=== PATIENT | female | born 1995 | race Caucasian/White ===

== ENCOUNTER 2017-07-01 21:14 | Emergency (ER) | payer OTHER, MEDICAID, SELFPAY | END 2017-07-01 23:07 | disposition home or self-care (01) | PROVIDERS: Emergency Provider Emergency Medicine; Visit Provider Emergency Medicine | DX: H10.9 Unspecified conjunctivitis (principal); B00.9 Herpesviral infection, unspecified | CPT/HCPCS: 99283 ==

== ENCOUNTER 2017-07-27 07:17 | Emergency (ER) | payer MEDICAID, SELFPAY ==
[2017-07-27 07:24] VITALS: BP 110/73; PULSE 94; RESP 13; TEMP 36.8; O2SAT 98
--- NOTE | 2017-07-27 07:27 | ED_ITS ---
HPI - Eye Problem General Chief complaint: Eye Problems Stated complaint: coughing, thinks she has pink eye left Time Seen by Provider: 07/27/17 07:18 Source: patient Mode of arrival: ambulatory Limitations: no limitations History of Present Illness HPI Narrative: patient is a 22-year-old female here for evaluation of left eye redness and irritation. Patient was seen here approximately 1 week ago for the same symptoms in her right eye. Is currently on Keflex and erythromycin ointment. Patient has been seen here in the emergency department 2 times prior to this for similar symptoms. I have seen her 1 time in the past. She states that there was a ?eyedrop ?that she was given in the past that seemed to take care of her symptoms within 1 day. She states she does not remember the name of this medication. No trauma. Does have blurry vision. Does have a foreign body sensation. Does have itching. She states that her right eye symptoms that she was seen for approximately 1 week ago have resolved. Related Data Home Medications Medication Instructions Recorded Confirmed [id number] acid 1 tab PO DAILY 07/19/17 07/19/17 [ 19] Previous Rx's Medication Instructions Recorded cephalexin [Keflex] 500 mg PO QID #40 cap 07/19/17 ibuprofen 600 mg PO TID-QID PRN #30 tab 07/19/17 olopatadine 1 drop EYE-LEFT BID 7 Days #2.5 ml 07/27/17 Allergies Allergy/AdvReac Type Severity Reaction Status Date / Time No Known Allergies Allergy Uncoded 07/01/17 21:22 Review of Systems Constitutional Denies chills, Denies fever(s), Denies lethargy and Denies weakness Eyes Comments: Left eye redness, left eye itching, left eye foreign body sensation, left eye irritation, left eye drainage, No right eye symptoms ENT Comments: No sore throat although she did have a sore throat 1 week ago No ear symptoms No cough No problem swallowing No sinus congestion Cardiovascular Denies dyspnea and Denies dyspnea on exertion Respiratory Denies cough, Denies dyspnea, Denies dyspnea on exertion and Denies wheezing Integumentary/Breasts Comments: Redness around her left eye otherwise no other skin symptoms Neurologic Denies weakness Hematologic/Lymphatic Denies easy bruising Allergic/Immunologic Denies wheezing [facility] Social History (Reviewed 07/27/17 @ 08:04 by BENJAMIN Pretty Smoking Status: Current some day smoker Exam Const General: cooperative and well developed Nutritional Appearance: well nourished Orientation: alert, awake, oriented x3 and not confused [facility] Head: normal to inspection, normocephalic and atraumatic Ears: external ears normal, TM's normal bilaterally and EAC abnormal Nose: external nose normal and No nasal discharge Face and sinus: sinuses nontender, face symmetric, no sinus tenderness and No dry mucous membranes Mouth: oral mucosae normal and moist mucous membranes Teeth and gingiva: dentition normal Throat: tonsils normal and uvula midline Eyes Pupils: PERRL EOM: EOM intact bilaterally Other: Right eye unremarkable Left eye with scleral injection Does have crusting on the upper and lower eyelids Does have cobblestoning of the lower conjunctiva No foreign body seen Patient does have some redness of the skin surrounding the eye mostly on the lower eyelid extending past the lateral portion of the eye Resp Effort & Inspection: normal respiratory effort, able to speak in complete sentences, no respiratory distress and no use of accessory muscles Auscultation: clear to auscultation bilaterally, no rales, no rhonchi and no wheezes Skin Other: Redness surrounding the left IC I section for details Neuro General: alert, oriented x3, gait normal and no focal motor deficits Cranial Nerves: CN's II-XI intact bilaterally Speech: speech normal Motor: strength 5/5 throughout Sensory Exam: no sensory deficits noted MDM - Eye Problem MDM Narrative Medical decision making narrative: Patient with 4 visits since the beginning of the year for similar symptoms. She has been on Augmentin in the past and is currently on Keflex. Does have some other URI like symptoms. Had review of her past notes I could not find what medication that she was given that she states took away her symptoms however when I did talk to her about other treatments such as decongestants and nasal steroids I also mentioned the medication Patanol. She states that that sounded very familiar in thinks it was the medication she was given in the past. I will not change her antibiotics today. Will not start on new antibiotics today. I suspect the redness around her eye his irritation from her rubbing the eye. No foreign body. She does not wear contacts or glasses. I suspect that her symptoms are allergic in nature given her prior symptoms and the fact that the Patanol took her symptoms almost completely away. We did discuss the importance of her following up with her primary care doctor. She states that ?no one will take me ?when asked if she was going to pursue finding a primary care doctor. Informed her that it would is important since she seems to be having consistent symptoms. We discussed the use of the antihistamines and nasal steroids on a consistent basis. She expressed understanding and agreement with plan. Course Last Vital Signs Temp 98.2 F 07/27/17 07:24 Pulse 94 H 07/27/17 07:24 Resp 13 07/27/17 07:24 BP 110/73 07/27/17 07:24 Pulse Ox 98 07/27/17 07:24 Discharge Plan Departure Patient Disposition: Home, Self-Care Clinical Impression: Conjunctivitis Instructions: Conjunctivitis (Alternative Therapy), Conjunctivitis Activity Restrictions/Additional Instructions: Continue the antibiotics he were given from year last visit here in the emergency department. Highly recommend that you may contact with a primary to discuss your recurrent eye symptoms. I also recommend that you start on a allergy medication like Claritin or Tiara or Zurtec and a nasal steroid like nasonex or Flonase to help with your symptoms. try to avoid rubbing your eye. the Patanol eyedrops here given today are a slightly different concentration than the ones you were given prior. Stop your prior medication and start the 1 You were given today. Prescriptions: New olopatadine 0.2 % drops 1 drop EYE-LEFT BID 7 Days Qty: 2.5 RF: 0 No Action [id number] acid [ 19] 29 mg iron- 1 mg Tablet,Chewable 1 tab PO DAILY RF: 0 cephalexin [Keflex] 500 mg capsule 500 mg PO QID Qty: 40 RF: 0 ibuprofen 600 mg tablet 600 mg PO TID-QID PRN (Reason: pain) Qty: 30 RF: 0
== END 2017-07-27 08:18 | disposition home or self-care (01) ==
LOC: ED 08:12
PROVIDERS: Emergency Provider Emergency Medicine
DX: H10.9 Unspecified conjunctivitis (principal)
CPT/HCPCS: 99282

== ENCOUNTER 2017-10-21 04:21 | Emergency (ER) | payer OTHER, MEDICAID, SELFPAY ==
--- NOTE | 2017-10-21 04:26 | ED_ITS ---
HPI - Dental/Oral General Chief complaint: Dental/Oral Stated complaint: WISDOM TOOTH PAIN Time Seen by Provider: 10/21/17 04:25 Source: patient Mode of arrival: ambulatory Limitations: no limitations History of Present Illness HPI Narrative: 22-year-old female here for evaluation of what she describes as was in tooth pain. Patient states that it has been worsening over the past couple days. She has had dental issues in the past. No fevers. No problems breathing. No problems tolerating secretions. Has not tried anything for it prior to arrival. Has not seen a dentist in some time. MD Complaint: tooth pain Location: Tooth # (#[phone]) Related Data Home Medications Medication Instructions Recorded Confirmed [id number] acid 1 tab PO DAILY 07/19/17 07/19/17 [ 19] Previous Rx's Medication Instructions Recorded cephalexin [Keflex] 500 mg PO QID #40 cap 07/19/17 ibuprofen 600 mg PO TID-QID PRN #30 tab 07/19/17 penicillin V potassium 500 mg PO QID 7 Days #28 tab 10/21/17 Allergies Allergy/AdvReac Type Severity Reaction Status Date / Time No Known Allergies Allergy Uncoded 07/01/17 21:22 Review of Systems Constitutional Denies fever(s) and Denies headache(s) Eyes Denies itchy eyes ENT Ears, Nose, Mouth, and Throat: Reports dental pain, Denies facial pain, Denies headache(s), Denies lip swelling, Denies mouth pain, Denies tinnitus, Denies sore throat, Denies throat swelling and Denies tongue swelling Cardiovascular Denies dyspnea Respiratory Denies dyspnea Integumentary/Breasts Denies lesions and Denies rash Neurologic Denies headache(s) Allergic/Immunologic Denies urticaria, Denies itchy eyes, Denies lip swelling, Denies throat swelling and Denies tongue swelling PFSH Medical History HSV infection (Acute) Surgical History No pertinent past surgical history (Acute) Social History Smoking Status: Current some day smoker Exam Initial Vital Signs Initial Vital Signs: Vital Signs Temperature 99.9 F H 10/21/17 04:27 Pulse Rate 115 H 10/21/17 04:27 Respiratory Rate 20 10/21/17 04:27 Blood Pressure 110/70 10/21/17 04:27 Pulse Oximetry 98 10/21/17 04:27 Const General: cooperative, healthy appearing, comfortable, well developed, well groomed and No acute distress Orientation: alert, awake and oriented x3 HENMT Head: normal to inspection, normocephalic and atraumatic Ears: TM's normal bilaterally Nose: external nose normal Face and sinus: normal facial exam Mouth: oral mucosae normal, lip normal, tongue normal and moist mucous membranes Teeth and gingiva: other (Multiple prior cavities. No gross caries seen. No abscess is seen.) Throat: posterior oropharynx normal and uvula midline Eyes General: appearance normal, both eyes and all related structures Neck Lymphatic: lymphadenopathy (Anterior cervical right-sided lymphadenopathy) Resp Effort & Inspection: normal respiratory effort Skin Lesions: no lesions Rashes: no rashes Neuro General: alert, awake and oriented x3 Psych Appearance: grossly normal and well kempt Course Vital Signs - 8 hr 10/21/17 04:27 10/21/17 04:38 Temperature 99.9 F H 99.9 F H Pulse Rate 115 H 102 H Respiratory Rate 20 20 Blood Pressure 110/70 110/70 Pulse Oximetry 98 98 MDM - Dental/Oral MDM Narrative Medical decision making narrative: No obvious abscess seen. Performed a inferior alveolar nerve in superior alveolar nerve block with 1% lidocaine and 0.5% Marcaine with improvement of her symptoms.. Will send home with penicillin. Patient was initially instructed that she can take anti- inflammatories such as Motrin or Naprosyn however she states that she is 6 weeks . This was crossed out on her discharge instructions and she was informed that she is limited to Tylenol secondary to the . She is informed that she needed to make contact with a dentist. I verbally gave her recommendations for low-cost dentists in the area. She was given return precautions. She expressed understanding and agreement with plan. Discharge Plan Departure Patient Disposition: Home, Self-Care Clinical Impression: Pain, dental Instructions: DI for Tooth Decay, DI for Dental Pain Activity Restrictions/Additional Instructions: Recommend that you may contact with a dentist in the area for follow-up. Take the antibiotics as directed. Also recommend that you take an anti-inflammatory such as Motrin or Naprosyn for any discomfort. Return to the emergency department for any new symptoms. Prescriptions: New penicillin V potassium 500 mg tablet 500 mg PO QID 7 Days Qty: 28 RF: 0 No Action [id number] acid [ 19] 29 mg iron- 1 mg Tablet,Chewable 1 tab PO DAILY RF: 0 cephalexin [Keflex] 500 mg capsule 500 mg PO QID Qty: 40 RF: 0 ibuprofen 600 mg tablet 600 mg PO TID-QID PRN (Reason: pain) Qty: 30 RF: 0
[2017-10-21 04:27] VITALS: BP 110/70; PULSE 115; RESP 20; TEMP 37.7; O2SAT 98; BMI 21.0
[2017-10-21 04:38] VITALS: BP 110/70; PULSE 102; RESP 20; TEMP 37.7; O2SAT 98; BMI 21.0
== END 2017-10-21 05:03 | disposition home or self-care (01) ==
PROVIDERS: Emergency Provider Emergency Medicine
DX: K08.89 Other specified disorders of teeth and supporting structures (principal)
CPT/HCPCS: 99282

== ENCOUNTER 2017-12-17 17:10 | Emergency (ER) | payer MEDICAID, SELFPAY ==
[2017-12-17 17:41] VITALS: BP 123/88; PULSE 99; RESP 16; TEMP 36.8; O2SAT 98
--- NOTE | 2017-12-17 20:20 | ED_ITS ---
HPI - Dental/Oral <SHELTON Red - Last Filed: 12/17/17 22:26> General Chief complaint: Dental/Oral Stated complaint: BAD TOOTH ACHE Time Seen by Provider: 12/17/17 19:16 Source: patient Mode of arrival: ambulatory Limitations: no limitations History of Present Illness HPI Narrative: 22-year-old female here for pain into her right lower molars for the past couple of months. She has been seen for this in the past and was referred to a dentist. She states she has not seen the dentist as of yet. She denies any trauma to the area. No fevers or chills. She denies any complications with the . She is currently approximately 16 weeks 1. She denies any other complaints at this timeframe. No drainage from the area. No for MD Complaint: tooth pain Onset (ago): day(s) Related Data Home Medications Medication Instructions Recorded Confirmed [id number] acid 1 tab PO DAILY 07/19/17 07/19/17 [ 19] Previous Rx's Medication Instructions Recorded amoxicillin 875 mg PO BID #20 tab 12/17/17 nitrofurantoin monohyd/m-cryst 100 mg PO BID #14 cap 12/17/17 [Macrobid] Allergies Allergy/AdvReac Type Severity Reaction Status Date / Time No Known Allergies Allergy Uncoded 07/01/17 21:22 Review of Systems <SHELTON Red - Last Filed: 12/17/17 22:26> Constitutional Denies chills, Denies fever(s), Denies lethargy and Denies weakness Eyes Denies change in vision, Denies eye discharge, Denies irritation and Denies loss of vision ENT Ears, Nose, Mouth, and Throat: Reports mouth pain Cardiovascular Denies chest pain, Denies irregular heart rhythm, Denies lightheadedness, Denies palpitations, Denies dyspnea, Denies dyspnea on exertion and Denies orthopnea Respiratory Denies cough, Denies dyspnea, Denies dyspnea on exertion and Denies wheezing Gastrointestinal Gastrointestinal: Denies abdominal pain, Denies change in bowel habits, Denies diarrhea, Denies nausea and Denies vomiting Genitourinary Denies hematuria, Denies flank pain, Denies urinary incontinence and Denies urinary urgency Musculoskeletal Denies back pain, Denies muscle weakness, Denies numbness and Denies tingling Integumentary/Breasts Denies pruritus, Denies erythema, Denies rash and Denies wounds Neurologic Denies confusion, Denies loss of vision, Denies numbness, Denies tingling and Denies weakness Psychiatric Denies anxiety, Denies confusion, Denies depression, Denies homicidal ideation and Denies suicidal ideation Endocrine Denies palpitations Hematologic/Lymphatic Denies easy bruising Allergic/Immunologic Denies wheezing Exam <SHELTON Red - Last Filed: 12/17/17 22:26> Initial Vital Signs Initial Vital Signs: Vital Signs Temperature 98.2 F 12/17/17 17:41 Pulse Rate 99 H 12/17/17 17:41 Respiratory Rate 16 12/17/17 17:41 Blood Pressure 123/88 12/17/17 17:41 Pulse Oximetry 98 12/17/17 17:41 Const General: cooperative and well developed Nutritional Appearance: well nourished Orientation: alert, awake, oriented x3 and not confused HENMT Mouth: oral mucosae normal and moist mucous membranes Teeth and gingiva: dentition normal Throat: posterior oropharynx normal Chest Chest: normal inspection of the chest Resp Effort & Inspection: normal respiratory effort, able to speak in complete sentences, no respiratory distress and no use of accessory muscles Auscultation: clear to auscultation bilaterally, no rales, no rhonchi and no wheezes Cardio Rate: regular rate Rhythm: regular rhythm Heart Sounds: no click, no gallops, no murmurs and no rubs Pulses: normal peripheral pulses Skin General: no rashes or lesions noted, No jaundice and No petechiae Neuro General: alert, oriented x3, gait normal and no focal motor deficits Speech: speech normal <Nik Cee DO - Last Filed: 12/17/17 23:26> Initial Vital Signs Initial Vital Signs: Vital Signs Temperature 98.2 F 12/17/17 17:41 Pulse Rate 99 H 12/17/17 17:41 Respiratory Rate 16 12/17/17 17:41 Blood Pressure 123/88 12/17/17 17:41 Pulse Oximetry 98 12/17/17 17:41 Course <SHELTON Red - Last Filed: 12/17/17 22:26> Orders Ordered: ED Orders 12/17/17 19:55 Urine Culture Stat Urine Microscopic Stat Vital Signs - 8 hr 10/05/18 17:41 12/17/17 20:43 Temperature 98.2 F 98.7 F Pulse Rate 99 H 97 H Respiratory Rate 16 16 Blood Pressure 123/88 119/79 Pulse Oximetry 98 97 <Nik Cee DO - Last Filed: 12/17/17 23:26> Orders Ordered: ED Orders 12/17/17 19:55 Urine Culture Stat Urine Microscopic Stat Vital Signs - 8 hr 12/17/17 17:41 12/17/17 20:43 Temperature 98.2 F 98.7 F Pulse Rate 99 H 97 H Respiratory Rate 16 16 Blood Pressure 123/88 119/79 Pulse Oximetry 98 97 MDM - Dental/Oral <SHELTON Red - Last Filed: 12/17/17 22:26> Lab Data Lab Results 12/17/17 Range/Units 19:55 Urine RBC 0-1/hpf (0-5/HPF) Urine WBC 10-30/hpf H (0-5/HPF) Ur Squamous Epith Cells 1-5 /hpf Ur Transition Epith Cell 5-10/hpf H (0-5/HPF) Urine Bacteria Moderate (10-30) H (None) Ur Culture Indicated? Specimen cultured Micro UA Comment 1+ clue cell Urine Dip Bedside Urine Glucose Negative Bedside Urine Bilirubin - Negative Bedside Urine Ketone - Negative Urine Specific [place] 1.015 Bedside Urine Occult Blood - Negative Bedside Urine pH 7.5 Bedside Urine Protein - Negative Bedside Urine Urobilinogen - Negative Bedside Urine Nitrite - Negative Bedside Urine Leukocytes +++ 500 Esterase MDM Narrative Medical decision making narrative: Patient was provided relief from her pain by providing inferior alveolar block to the right lower jaw. She is placed on amoxicillin to cover for starting dental infection. She is encouraged to follow up with dentist here in the next few days. heart tones were obtained and was 150. P was he urine was obtained was negative for urinary tract infection. [id number] Tylenol as needed for any discomfort. For any worsening symptoms return to the emergency room. POC urine urinalysis indicates signs of a symptomatic urinary tract infection. She is placed on Macrobid. <Nik Cee DO - Last Filed: 12/17/17 23:26> Lab Data Lab Results 12/17/17 Range/Units 19:55 Urine RBC 0-1/hpf (0-5/HPF) Urine WBC 10-30/hpf H (0-5/HPF) Ur Squamous Epith Cells 1-5 /hpf Ur Transition Epith Cell 5-10/hpf H (0-5/HPF) Urine Bacteria Moderate (10-30) H (None) Ur Culture Indicated? Specimen cultured Micro UA Comment 1+ clue cell Urine Dip Bedside Urine Glucose Negative Bedside Urine Bilirubin - Negative Bedside Urine Ketone - Negative Urine Specific [place] 1.015 Bedside Urine Occult Blood - Negative Bedside Urine pH 7.5 Bedside Urine Protein - Negative Bedside Urine Urobilinogen - Negative Bedside Urine Nitrite - Negative Bedside Urine Leukocytes +++ 500 Esterase Discharge Plan Departure Patient Disposition: Home Clinical Impression: Pain, dental, Urinary tract infection Discharge Date/Time: 12/17/17 20:42 Interventions: ED Discharge Assessment Last Done: 12/17/17 20:43 Instructions: DI for Dental Pain Activity Restrictions/Additional Instructions: Follow up with dentist here in the next week to treat dental pain. To cover for starting infection year placed on an antibiotic called amoxicillin use as directed. Use [id number] Tylenol as needed for any discomfort. Urinalysis indicates urinary tract infection. You have been placed on another antibiotic called Macrobid use as directed. Plenty of fluids. Follow up with primary care provider follow up with OBGYN. For any worsening symptoms return to the emergency room. Prescriptions: New amoxicillin 875 mg tablet 875 mg PO BID Qty: 20 RF: 0 nitrofurantoin monohyd/m-cryst [Macrobid] 100 mg capsule 100 mg PO BID Qty: 14 RF: 0 No Action [id number] acid [ 19] 29 mg iron- 1 mg Tablet,Chewable 1 tab PO DAILY RF: 0 Referrals: [facility] [Provider Group] <Nik Cee DO - Last Filed: 12/17/17 23:26> Cosign ED Attending Bakari Attestation: I was available for consultation during this patient's emergency department encounter
[2017-12-17 20:23] LABS: Bacteria Urine Moderate (10-30); Culture Indicated Urine Specimen Cultured; RBC Urine 0-1/HPF (0-5/HPF); Squamous Epithelial Cell Urine 1-5 /HPF; Transitional Epi Cells Urine 5-10/HPF (0-5/HPF); WBC Urine 10-30/HPF (0-5/HPF)
[2017-12-17 20:24] LABS: Urine Comments 1+ Clue Cell
[2017-12-17 20:43] VITALS: BP 119/79; PULSE 97; RESP 16; TEMP 37.1; O2SAT 97
== END 2017-12-17 20:42 | disposition home or self-care (01) ==
PROVIDERS: Emergency Provider Nurse Practitioner Family
DX: K08.89 Other specified disorders of teeth and supporting structures (principal); N39.0 Urinary tract infection, site not specified
CPT/HCPCS: 81003; 81015; 87077; 87086; 87186; 99282; 99283

== ENCOUNTER → 2018-04-04 17:08 | Outpatient (CLI) | payer OTHER, MEDICAID, SELFPAY ==
[2018-04-04 18:54] LABS: Urine Amphetamines Positive (Negative); Urine Barbiturates Negative (Negative); Urine Benzodiazepines Negative (Negative); Urine Cocaine Negative (Negative); Urine MDMA Negative (Negative); Urine Methadone Negative (Negative); Urine Methamphetamines Positive (Negative); Urine Morphine/Opi cutoff 2000 Negative (Negative); Urine Oxycodone Negative (Negative); Urine Phencyclidine Negative (Negative); Urine Tetrahydrocannabinol Negative (Negative); Urine Tricyclic Antidepressant Negative (Negative)
== END ==
DX: Z3A.31 31 weeks gestation of pregnancy (principal); F19.21 Other psychoactive substance dependence, in remission; Z34.83 Encounter for supervision of other normal pregnancy, third trimester
CPT/HCPCS: 80305; 87077; 87086; 87186

== ENCOUNTER 2018-05-13 15:34 | Inpatient (IN) | payer MEDICAID, OTHER, SELFPAY ==
[2018-05-13] MEDS: LACTATED RINGERS 1,000 ML 100 ML IV (16:20)
[2018-05-13 16:33] LABS: Add Manual Diff / Slide Review NO; Basophils Absolute Auto 100 /uL (0-100); Basophils Percent Auto 0.6 % (0-2); Eosinophils Absolute Auto 0 /uL (0-450); Eosinophils Percent Auto 0.1 % (2-4); Hemoglobin 10.2 g/dL (12.0-16.0); Lymphocytes Absolute Auto 3600 /uL (1100-4500); Lymphocytes Percent Auto 23.4 % (25-40); Mean Corpuscular HGB Conc 31.9 % (30-36); Mean Corpuscular Hemoglobin 25.6 PG (26-34); Mean Corpuscular Volume 80.2 fL (80-100); Monocytes Absolute Auto 1100 /uL (0-900); Monocytes Percent Auto 6.9 % (3-14); Neutrophils Absolute Auto 10700 /uL (1500-7000); Platelet Count 386 X10^3/uL (150-400); Red Blood Cell Count 3.99 X10^6/uL (4.0-5.2); Red Cell Distribution Width 16.9 % (11.6-14.8); White Blood Cell Count 15.5 X10^3/uL (4.5-11.0)
[2018-05-13] MEDS: PENICILLIN G POTASSIUM 5,000,000 UNIT in DEXTROSE 5% IN WATER 250 ML IV (16:41)
[2018-05-13 17:30] LABS: Strep Grp B PCR NEG for Grp B Strep
[2018-05-13 18:10] LABS: Urine Cocaine Negative (Negative); Urine Morphine/Opi cutoff 2000 Negative (Negative); Urine Tetrahydrocannabinol Negative (Negative)
[2018-05-13 18:11] LABS: Urine Amphetamines Positive (Negative); Urine Barbiturates Negative (Negative); Urine Benzodiazepines Negative (Negative); Urine MDMA Negative (Negative); Urine Methadone Negative (Negative); Urine Methamphetamines Positive (Negative); Urine Oxycodone Negative (Negative); Urine Phencyclidine Negative (Negative); Urine Tricyclic Antidepressant Negative (Negative)
--- NOTE | 2018-05-13 19:33 | PM.OBHP.1 ---
OB HPI Date/Time Date of admission: 05/13/18 Date Patient Seen: 05/13/18 Time Patient Seen: 16:00 History of Present Condition Chief complaint: : 3 Para: 2 Estimated Date of Delivery: 05/26/18 Estimated Gestational Age (weeks): 38 Narrative: Mandie Shah is a 22 year old female Who presented in active labor History of Present care: limited care Dating criteria: LMP confirmed by 1st trimester US Ultrasounds: normal mid trimester US Obstetrical complications: none Medical complications: other ( drug use of methamphetamines during ) Preadmission Labs Blood type: O (+) positive -: Antibody screen: negative, GBS status: unknown, HBsAG: negative and RPR/VDLR: negative -: Rubella: immune Prior (ies) History: 11/20/14 40 week gestation male infant 6 lb 7 oz being raised by her sister 03/15/16 36 week intrauterine demise female weighing 4 lb 2 oz Evaluation Evaluation Baseline heart rate: 150 Variability: Moderate (11-25) monitor accelerations: Present monitor decelerations: Variable Contraction Frequency (minutes): 3 Uterine Contraction Intensity: Moderate Category of Tracing: I Cervical dilation (cm): 6 Cervical effacement (%): 100 station: -1 Laboratory results: Laboratory Tests 05/13/18 05/13/18 05/13/18 16:05 16:05 16:10 WBC 15.5 H RBC 3.99 L Hgb 10.2 L Hct 32.0 L MCV 80.2 MCH 25.6 L MCHC 31.9 RDW 16.9 H Plt Count 386 Neut % (Auto) 69.0 Lymph % (Auto) 23.4 L [place] % (Auto) 6.9 Eos % (Auto) 0.1 L Baso % (Auto) 0.6 Neut # (Auto) 95263 H Lymph # (Auto) 3600 [place] # (Auto) 1100 H Eos # (Auto) 0 Baso # (Auto) 100 Urine Opiates Screen Negative Ur Oxycodone Screen Negative Urine Methadone Screen Negative Ur Barbiturates Screen Negative U Tricyclic Antidepress Negative Ur Phencyclidine Scrn Negative Ur Amphetamines Screen Positive H U Methamphetamines Scrn Positive H Ur MDMA Scrn (Ecstasy) Negative U Benzodiazepines Scrn Negative Urine Cocaine Screen Negative U Marijuana (THC) Screen Negative Group B Strep (PCR) Neg for grp b strep Blood Type Antibody Screen 05/13/18 16:10 WBC RBC Hgb Hct MCV MCH MCHC RDW Plt Count Neut % (Auto) Lymph % (Auto) [place] % (Auto) Eos % (Auto) Baso % (Auto) Neut # (Auto) Lymph # (Auto) [place] # (Auto) Eos # (Auto) Baso # (Auto) Urine Opiates Screen Ur Oxycodone Screen Urine Methadone Screen Ur Barbiturates Screen U Tricyclic Antidepress Ur Phencyclidine Scrn Ur Amphetamines Screen U Methamphetamines Scrn Ur MDMA Scrn (Ecstasy) U Benzodiazepines Scrn Urine Cocaine Screen U Marijuana (THC) Screen Group B Strep (PCR) Blood Type O Positive Antibody Screen [facility] History No pertinent past surgical history (Acute) Social History Smoking Status: Current some day smoker Social History Smoking Status: Current some day smoker Meds Home Medications Medication Instructions Recorded Confirmed Type [id number] acid 1 tab PO DAILY 07/19/17 03/30/18 History [ 19] Allergies Allergy/AdvReac Type Severity Reaction Status Date / Time No Known Allergies Allergy Uncoded 03/30/18 17:07 Review of Systems Review of Systems Patient complains of contractions. No leaking of fluid. No bleeding. Denies any current herpes outbreaks. No signs or symptoms of preeclampsia. All systems reviewed & are unremarkable except as noted in HPI and below Exam Vital Signs (past 8 hours): Blood pressure 141/90, pulse of 101, temperature 36.1? Narrative Exam Narrative: HEENT exam shows poor dentition. Lungs are clear to auscultation percussion. Heart is regular, rate, and rhythm no S3-S4 or murmurs. Abdomen is soft, nontender. vulva without any obvious herpetic lesions. Extremities with No edema and nontender. Purplish hue to patient's lower extremities. Normal DTRs. Objective Labs Result Diagrams: 05/13/18 16:10 Labs: Laboratory Results - last 24 hr 05/13/18 05/13/18 05/13/18 16:05 16:05 16:10 WBC 15.5 H RBC 3.99 L Hgb 10.2 L Hct 32.0 L MCV 80.2 MCH 25.6 L MCHC 31.9 RDW 16.9 H Plt Count 386 Neut % (Auto) 69.0 Lymph % (Auto) 23.4 L [place] % (Auto) 6.9 Eos % (Auto) 0.1 L Baso % (Auto) 0.6 Neut # (Auto) 42988 H Lymph # (Auto) 3600 [place] # (Auto) 1100 H Eos # (Auto) 0 Baso # (Auto) 100 Urine Opiates Screen Negative Ur Oxycodone Screen Negative Urine Methadone Screen Negative Ur Barbiturates Screen Negative U Tricyclic Antidepress Negative Ur Phencyclidine Scrn Negative Ur Amphetamines Screen Positive H U Methamphetamines Scrn Positive H Ur MDMA Scrn (Ecstasy) Negative U Benzodiazepines Scrn Negative Urine Cocaine Screen Negative U Marijuana (THC) Screen Negative Group B Strep (PCR) Neg for grp b strep Blood Type Antibody Screen 05/13/18 16:10 WBC RBC Hgb Hct MCV MCH MCHC RDW Plt Count Neut % (Auto) Lymph % (Auto) [place] % (Auto) Eos % (Auto) Baso % (Auto) Neut # (Auto) Lymph # (Auto) [place] # (Auto) Eos # (Auto) Baso # (Auto) Urine Opiates Screen Ur Oxycodone Screen Urine Methadone Screen Ur Barbiturates Screen U Tricyclic Antidepress Ur Phencyclidine Scrn Ur Amphetamines Screen U Methamphetamines Scrn Ur MDMA Scrn (Ecstasy) U Benzodiazepines Scrn Urine Cocaine Screen U Marijuana (THC) Screen Group B Strep (PCR) Blood Type O Positive Antibody Screen Negative Assessment and Plan (1) 38 weeks gestation of : Current visit: Yes Status: Acute Plan: 38 week gestation (2) Methamphetamine use: Current visit: Yes Status: Acute Plan: Patient with poor care who arrived in Labor and delivery in active labor. She requested an epidural catheter for pain control. She was started on IV penicillin for unknown group B step status. Due to the patient's methamphetamine use the baby will be transported when born to a nursery that can handle withdrawal. (3) Continuous dependence on cigarette smoking: Current visit: Yes Status: Acute
--- NOTE | 2018-05-13 19:36 | P.HPOB_ITS ---
OB HPI Date/Time Date of admission: 05/13/18 Date Patient Seen: 05/13/18 Time Patient Seen: 16:00 History of Present Condition Chief complaint: : 3 Para: 2 Estimated Date of Delivery: 05/26/18 Estimated Gestational Age (weeks): 38 Narrative: Mandie Shah is a 22 year old female Who presented in active labor History of Present care: limited care Dating criteria: LMP confirmed by 1st trimester US Ultrasounds: normal mid trimester US Obstetrical complications: none Medical complications: other ( drug use of methamphetamines during ) Preadmission Labs Blood type: O (+) positive -: Antibody screen: negative, GBS status: unknown, HBsAG: negative and RPR/VDLR: negative -: Rubella: immune Prior (ies) History: 11/20/14 40 week gestation male infant 6 lb 7 oz being raised by her sister 03/15/16 36 week intrauterine demise female weighing 4 lb 2 oz Evaluation Evaluation Baseline heart rate: 150 Variability: Moderate (11-25) monitor accelerations: Present monitor decelerations: Variable Contraction Frequency (minutes): 3 Uterine Contraction Intensity: Moderate Category of Tracing: I Cervical dilation (cm): 6 Cervical effacement (%): 100 station: -1 Laboratory results: Laboratory Tests 05/13/18 05/13/18 05/13/18 16:05 16:05 16:10 WBC 15.5 H RBC 3.99 L Hgb 10.2 L Hct 32.0 L MCV 80.2 MCH 25.6 L MCHC 31.9 RDW 16.9 H Plt Count 386 Neut % (Auto) 69.0 Lymph % (Auto) 23.4 L [place] % (Auto) 6.9 Eos % (Auto) 0.1 L Baso % (Auto) 0.6 Neut # (Auto) 22586 H Lymph # (Auto) 3600 [place] # (Auto) 1100 H Eos # (Auto) 0 Baso # (Auto) 100 Urine Opiates Screen Negative Ur Oxycodone Screen Negative Urine Methadone Screen Negative Ur Barbiturates Screen Negative U Tricyclic Antidepress Negative Ur Phencyclidine Scrn Negative Ur Amphetamines Screen Positive H U Methamphetamines Scrn Positive H Ur MDMA Scrn (Ecstasy) Negative U Benzodiazepines Scrn Negative Urine Cocaine Screen Negative U Marijuana (THC) Screen Negative Group B Strep (PCR) Neg for grp b strep Blood Type Antibody Screen 05/13/18 16:10 WBC RBC Hgb Hct MCV MCH MCHC RDW Plt Count Neut % (Auto) Lymph % (Auto) [place] % (Auto) Eos % (Auto) Baso % (Auto) Neut # (Auto) Lymph # (Auto) [place] # (Auto) Eos # (Auto) Baso # (Auto) Urine Opiates Screen Ur Oxycodone Screen Urine Methadone Screen Ur Barbiturates Screen U Tricyclic Antidepress Ur Phencyclidine Scrn Ur Amphetamines Screen U Methamphetamines Scrn Ur MDMA Scrn (Ecstasy) U Benzodiazepines Scrn Urine Cocaine Screen U Marijuana (THC) Screen Group B Strep (PCR) Blood Type O Positive Antibody Screen [facility] Surgical History No pertinent past surgical history (Acute) Social History Smoking Status: Current some day smoker Social History Smoking Status: Current some day smoker Meds Home Medications Medication Instructions Recorded Confirmed Type [id number] acid 1 tab PO DAILY 07/19/17 03/30/18 History [ 19] Allergies Allergy/AdvReac Type Severity Reaction Status Date / Time No Known Allergies Allergy Uncoded 03/30/18 17:07 Review of Systems Review of Systems Patient complains of contractions. No leaking of fluid. No bleeding. Denies any current herpes outbreaks. No signs or symptoms of preeclampsia. All systems reviewed & are unremarkable except as noted in HPI and below Exam Vital Signs (past 8 hours): Blood pressure 141/90, pulse of 101, temperature 36.1? Narrative Exam Narrative: HEENT exam shows poor dentition. Lungs are clear to auscultat ion percussion. Heart is regular, rate, and rhythm no S3-S4 or murmurs. Abdomen is soft, nontender. vulva without any obvious herpetic lesions. Extremities with No edema and nontender. Purplish hue to patient's lower extremities. Normal DTRs. Objective Labs Result Diagrams: 05/13/18 16:10 Labs: Laboratory Results - last 24 hr 05/13/18 05/13/18 05/13/18 16:05 16:05 16:10 WBC 15.5 H RBC 3.99 L Hgb 10.2 L Hct 32.0 L MCV 80.2 MCH 25.6 L MCHC 31.9 RDW 16.9 H Plt Count 386 Neut % (Auto) 69.0 Lymph % (Auto) 23.4 L [place] % (Auto) 6.9 Eos % (Auto) 0.1 L Baso % (Auto) 0.6 Neut # (Auto) 93870 H Lymph # (Auto) 3600 [place] # (Auto) 1100 H Eos # (Auto) 0 Baso # (Auto) 100 Urine Opiates Screen Negative Ur Oxycodone Screen Negative Urine Methadone Screen Negative Ur Barbiturates Screen Negative U Tricyclic Antidepress Negative Ur Phencyclidine Scrn Negative Ur Amphetamines Screen Positive H U Methamphetamines Scrn Positive H Ur MDMA Scrn (Ecstasy) Negative U Benzodiazepines Scrn Negative Urine Cocaine Screen Negative U Marijuana (THC) Screen Negative Group B Strep (PCR) Neg for grp b strep Blood Type Antibody Screen 05/13/18 16:10 WBC RBC Hgb Hct MCV MCH MCHC RDW Plt Count Neut % (Auto) Lymph % (Auto) [place] % (Auto) Eos % (Auto) Baso % (Auto) Neut # (Auto) Lymph # (Auto) [place] # (Auto) Eos # (Auto) Baso # (Auto) Urine Opiates Screen Ur Oxycodone Screen Urine Methadone Screen Ur Barbiturates Screen U Tricyclic Antidepress Ur Phencyclidine Scrn Ur Amphetamines Screen U Methamphetamines Scrn Ur MDMA Scrn (Ecstasy) U Benzodiazepines Scrn Urine Cocaine Screen U Marijuana (THC) Screen Group B Strep (PCR) Blood Type O Positive Antibody Screen Negative Assessment and Plan (1) 38 weeks gestation of : Current visit: Yes Status: Acute Plan: 38 week gestation (2) Methamphetamine use: Current visit: Yes Status: Acute Plan: Patient with poor care who arrived in Labor and delivery in active labor. She requested an epidural catheter for pain control. She was started on IV penicillin for unknown group B step status. Due to the patient's methamphetamine use the baby will be transported when born to a nursery that can handle withdrawal. (3) Continuous dependence on cigarette smoking: Current visit: Yes Status: Acute
--- NOTE | 2018-05-13 19:51 | PM.OBPRVD ---
Events: No Care ( Poor care, methamphetamine use and smoking during ) Delivery date: 05/13/18 Intrapartal events: Precipitous Labor < 3 hours Delivery monitor: external FHT and external uterine Route of delivery: L&D Laceration Description: None Estimated blood loss (mL): 200 Anesthesia type: Epidural Narrative: Patient arrived on Labor and delivery in active labor. She received an epidural catheter for pain control. She received 1 dose of IV penicillin for unknown group B strep status. She had thick meconium-stained fluid. She delivered spontaneously over an intact perineum a viable female infant. The infant was placed on maternal abdomen after cords stopped pulsating the cord was clamped cut and cord bloods obtained. The cord from the placenta requiring manual removal of the placenta that was mostly in the vagina at the time. The placenta appeared to be intact with 3 vessels. There were no cervical, vaginal, or perineal tears. The viable female weighed 5 lb 5.89 oz, 2435 g. Apgars were 8 and 8. both infant and mother doing well. Baby 1: gender: Female Presentation: vertex position: Right Occiput Anterior Placenta delivery description: Manual Removal cord vessel description: 3 Vessels score (1 min): 8 score (5 min): 8 Plan for aftercare: Routine care. Infant will likely be transported due to likely withdrawal from methamphetamines.
--- NOTE | 2018-05-13 22:50 | PM.DS.1 ---
History of Present Illness Date Patient Seen: 05/13/18 Time Patient Seen: 22:50 Chief complaint: Narrative: Patient arrived on Labor and delivery in active labor. She delivered spontaneously. Discharge Providers Date of admission: 05/13/18 15:34 Discharge Date: 05/13/18 Consults: 05/13/18 16:12 Consult to Anesthesiology Urgent Comment: Consulting Provider: Anesthesiologist Reason for consultation: Epidural Has provider been notified: No 05/13/18 22:26 Consult to Cytotechnologist/Cytology Supervisor Routine Comment: Consult to Drug Clerk Routine Comment: Discharge provider: Susan Peck MD Summary Discharge Diagnosis: Vaginal delivery Hospital Course: Patient arrived on Labor and delivery in active labor. She delivered spontaneously. The infant was transported to [facility] for monitoring for withdrawal so the patient requested early discharge. Patient's vital signs are stable. No signs or symptoms of preeclampsia. Patient's abdomen is soft, nontender. Uterus is firm, at U, nontender. Mild lochia. Perineum is intact. Extremities without edema and nontender. Status at Discharge Functional status at discharge: independent ambulation Overall status at discharge: patient is progressing back to baseline Time Spent with Patient Less than 30 minutes Exam Vital Signs (past 8 hours): Blood pressure 145/86, temperature 36.1?, pulse 107 Narrative Exam Narrative: Abdomen is soft, nontender. Uterus is firm, at U, nontender. Perineum is intact. Mild lochia. Extremities without edema and nontender. Objective Labs Result Diagrams: 05/13/18 16:10 Labs: Laboratory Results - last 24 hr 05/13/18 05/13/18 05/13/18 16:05 16:05 16:10 WBC 15.5 H RBC 3.99 L Hgb 10.2 L Hct 32.0 L MCV 80.2 MCH 25.6 L MCHC 31.9 RDW 16.9 H Plt Count 386 Neut % (Auto) 69.0 Lymph % (Auto) 23.[address] [place] % (Auto) 6.9 Eos % (Auto) 0.1 L Baso % (Auto) 0.6 Neut # (Auto) 49852 H Lymph # (Auto) 36[address] [place] # (Auto) 1100 H Eos # (Auto) 0 Baso # (Auto) 100 Urine Opiates Screen Negative Ur Oxycodone Screen Negative Urine Methadone Screen Negative Ur Barbiturates Screen Negative U Tricyclic Antidepress Negative Ur Phencyclidine Scrn Negative Ur Amphetamines Screen Positive H U Methamphetamines Scrn Positive H Ur MDMA Scrn (Ecstasy) Negative U Benzodiazepines Scrn Negative Urine Cocaine Screen Negative U Marijuana (THC) Screen Negative Group B Strep (PCR) Neg for grp b strep Blood Type Antibody Screen 05/13/18 16:10 WBC RBC Hgb Hct MCV MCH MCHC RDW Plt Count Neut % (Auto) Lymph % (Auto) [place] % (Auto) Eos % (Auto) Baso % (Auto) Neut # (Auto) Lymph # (Auto) [place] # (Auto) Eos # (Auto) Baso # (Auto) Urine Opiates Screen Ur Oxycodone Screen Urine Methadone Screen Ur Barbiturates Screen U Tricyclic Antidepress Ur Phencyclidine Scrn Ur Amphetamines Screen U Methamphetamines Scrn Ur MDMA Scrn (Ecstasy) U Benzodiazepines Scrn Urine Cocaine Screen U Marijuana (THC) Screen Group B Strep (PCR) Blood Type O Positive Antibody Screen Negative Discharge Plan Discharge Plan Patient Disposition: Home Discharge Med Rec/Prescriptions Prescriptions: Continued 19 29 mg iron- 1 mg Tablet,Chewable 1 tab PO DAILY RF: 0 Follow up/Referrals: Susan Peck MD [Physician] - 1 Month Provider Discharge Instructions Diet: Regular Activity: nothing in vagina for 4 weeks Skin/Wound/Dressing Care Report to your healthcare provider any signs of infection, such as:: chills, fever and unusual drainage Visit Report/Discharge Packet Stand Alone Forms: Discharge: Care Discharge Data Attending Provider: Madhav Salgado Admit Date/Time: 05/13/18 15:34
[2018-05-13 22:51] VITALS: BP 145/86; PULSE 107; TEMP 36.1
--- NOTE | 2018-05-13 22:55 | P.DS_ITS ---
History of Present Illness Date Patient Seen: 05/13/18 Time Patient Seen: 22:50 Chief complaint: Narrative: Patient arrived on Labor and delivery in active labor. She delivered spontaneously. Discharge Providers Date of admission: 05/13/18 15:34 Discharge Date: 05/13/18 Consults: 05/13/18 16:12 Consult to Anesthesiology Urgent Comment: Consulting Provider: Anesthesiologist Reason for consultation: Epidural Has provider been notified: No 05/13/18 22:26 Consult to Manager Process Improvement Routine Comment: Consult to Sales Effectiveness Manager Routine Comment: Discharge provider: Susan Peck MD Summary Discharge Diagnosis: Vaginal delivery Hospital Course: Patient arrived on Labor and delivery in active labor. She delivered spontaneously. The infant was transported to [facility] for monitoring for withdrawal so the patient requested early discharge. Patient's vital signs are stable. No signs or symptoms of preeclampsia. Patient's abdomen is soft, nontender. Uterus is firm, at U, nontender. Mild lochia. Perineum is intact. Extremities without edema and nontender. Status at Discharge Functional status at discharge: independent ambulation Overall status at discharge: patient is progressing back to baseline Time Spent with Patient Less than 30 minutes Exam Vital Signs (past 8 hours): Blood pressure 145/86, temperature 36.1?, pulse 107 Narrative Exam Narrative: Abdomen is soft, nontender. Uterus is firm, at U, nontender. Perineum is intact. Mild lochia. Extremities without edema and nontender. Objective Labs Result Diagrams: 05/13/18 16:10 Labs: Laboratory Results - last 24 hr 05/13/18 05/13/18 05/13/18 16:05 16:05 16:10 WBC 15.5 H RBC 3.99 L Hgb 10.2 L Hct 32.0 L MCV 80.2 MCH 25.6 L MCHC 31.9 RDW 16.9 H Plt Count 386 Neut % (Auto) 69.0 Lymph % (Auto) 23.4 L [place] % (Auto) 6.9 Eos % (Auto) 0.1 L Baso % (Auto) 0.6 Neut # (Auto) 97223 H Lymph # (Auto) 3600 [place] # (Auto) 1100 H Eos # (Auto) 0 Baso # (Auto) 100 Urine Opiates Screen Negative Ur Oxycodone Screen Negative Urine Methadone Screen Negative Ur Barbiturates Screen Negative U Tricyclic Antidepress Negative Ur Phencyclidine Scrn Negative Ur Amphetamines Screen Positive H U Methamphetamines Scrn Positive H Ur MDMA Scrn (Ecstasy) Negative U Benzodiazepines Scrn Negative Urine Cocaine Screen Negative U Marijuana (THC) Screen Negative Group B Strep (PCR) Neg for grp b strep Blood Type Antibody Screen 05/13/18 16:10 WBC RBC Hgb Hct MCV MCH MCHC RDW Plt Count Neut % (Auto) Lymph % (Auto) [place] % (Auto) Eos % (Auto) Baso % (Auto) Neut # (Auto) Lymph # (Auto) [place] # (Auto) Eos # (Auto) Baso # (Auto) Urine Opiates Screen Ur Oxycodone Screen Urine Methadone Screen Ur Barbiturates Screen U Tricyclic Antidepress Ur Phencyclidine Scrn Ur Amphetamines Screen U Methamphetamines Scrn Ur MDMA Scrn (Ecstasy) U Benzodiazepines Scrn Urine Cocaine Screen U Marijuana (THC) Screen Group B Strep (PCR) Blood Type O Positive Antibody Screen Negative Discharge Plan Discharge Plan Patient Disposition: Home Discharge Med Rec/Prescriptions Prescriptions: Continued 19 29 mg iron- 1 mg Tablet,Chewable 1 tab PO DAILY RF: 0 Follow up/Referrals: Susan Peck MD [Physician] - 1 Month Provider Discharge Instructions Diet: Regular Activity: nothing in vagina for 4 weeks Skin/Wound/Dressing Care Report to your healthcare provider any signs of infection, such as:: chills, fever and unusual drainage Visit Report/Discharge Packet Stand Alone Forms: Discharge: Care Discharge Data Attending Provider: Madhav Salgado Admit Date/Time: 05/13/18 15:34
[2018-05-14 06:59] LABS: Add Manual Diff / Slide Review NO; Basophils Absolute Auto 100 /uL (0-100); Basophils Percent Auto 0.5 % (0-2); Eosinophils Absolute Auto 0 /uL (0-450); Eosinophils Percent Auto 0.2 % (2-4); Hematocrit 31.9 % (36-46); Lymphocytes Absolute Auto 4800 /uL (1100-4500); Mean Corpuscular HGB Conc 31.5 % (30-36); Mean Corpuscular Hemoglobin 25.4 PG (26-34); Mean Corpuscular Volume 80.5 fL (80-100); Monocytes Absolute Auto 1400 /uL (0-900); Monocytes Percent Auto 8.2 % (3-14); Neutrophils Absolute Auto 10300 /uL (1500-7000); Neutrophils Percent Auto 62.1 % (50-75); Platelet Count 337 X10^3/uL (150-400); Red Blood Cell Count 3.96 X10^6/uL (4.0-5.2); Red Cell Distribution Width 17.1 % (11.6-14.8); White Blood Cell Count 16.5 X10^3/uL (4.5-11.0)
== END 2018-05-14 07:00 | disposition home or self-care (01) | DRG 807 ==
PROVIDERS: Specialist
DX: O99.334 Smoking (tobacco) complicating childbirth (principal); Z37.0 Single live birth; Z3A.38 38 weeks gestation of pregnancy; O99.324 Drug use complicating childbirth; F15.90 Other stimulant use, unspecified, uncomplicated; O77.0 Labor and delivery complicated by meconium in amniotic fluid; O73.0 Retained placenta without hemorrhage
CPT/HCPCS: 01967; 36415; 59050; 59409; 80305; 85025; 86850; 86900; 86901; 87653; 99222; G0378; G0379; J2540

== ENCOUNTER 2024-07-16 04:55 | Observation (INO) | payer OTHER, SELFPAY ==
[2024-07-16] VITALS (25 sets, daily range): BP systolic 93–140; BP diastolic 51–91; PULSE 68–98; RESP 13–21; TEMP 36–37.1; O2SAT 96–100; BMI 19.9
--- NOTE | 2024-07-16 | PATH_ITS ---
[facility] Accession Number: [id number] No. of containers..01 Tissue . 01 Material submitted: . gallbladder - GALLBLADDER AND CONTENTS . 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 Benign lymph node of cystic duct also present. Negative for dysplasia and malignancy. MRV 07/19/2024 1510 Local . 01 Electronically signed: . Casey Stringer MD, Pathologist NPI- [id number] . 01 Gross description: . Received in formalin with two identifiers and gallbladder and contents, is an intact gallbladder, 7.3 x 4.0 x 3.3 cm, with an unremarkable external surface. The cystic duct margin is inked blue and a [place] lymphoid node candidate is identified 0.7 cm in greatest dimension. The lumen contains two pale green roughened calculi up to 1.6 cm in greatest dimension admixed with dark green mucoid bile. The mucosa is green and velvety with no yellow areas of discoloration, polyps, or lesions identified. The [place]adows average 0.5 cm thick. Rfid Analyst sections to include the cystic duct margin, intact lymph node candidate, and full thickness sections submitted in A1. ([id number]) /MRV 07/18/2024 1929 Local . 01 Pathologist provided ICD-10: K80.10 . 01 CPT . 763317 Specimen Comment: A courtesy copy of this report has been sent to Pathology Performed at: [address] [id number] MD Avery Velasquez MD Phone: [phone]
--- NOTE | 2024-07-16 05:25 | ED_ITS ---
HPI - Abdominal Pain <Tyler Dash DO - Last Filed: 07/16/24 06:56> General Chief Complaint: Abdominal Pain Stated Complaint: Abdominal Pain Time Seen by Provider: 07/16/24 05:25 Source: patient Mode of arrival: Ambulatory History of Present Illness HPI narrative: 29-year-old female presents tonight with epigastric pain radiating to the back bilaterally. She denies fever, chills, nausea, vomiting, diarrhea, constipation, blood in the urine or stool. Patient denies chest pain, shortness breath cough, dysuria, urgency, frequency, or vaginal discharge. She last had a bowel movement earlier tonight and had sandwiches for dinner. She has not taken anything for the sharp pain. She believes she has a kidney infection and wanted to be evaluated. Other than what is stated 14 point review of system is negative. Related Data Home Medications Medication Instructions Recorded Confirmed vitamin no.115-iron 29 1 tab PO DAILY 07/19/17 05/13/18 mg-folic acid 1 mg chewable tablet ( 19) Allergies Allergy/AdvReac Type Severity Reaction Status Date / Time No Known Allergies Allergy Uncoded 03/30/18 17:07 Review of Systems <Tyler Dash DO - Last Filed: 07/16/24 06:56> Review of Systems ROS Unobtainable: All systems reviewed & are unremarkable except as noted in HPI and below Patient History <Tyler Dash DO - Last Filed: 07/16/24 06:56> Medical History (Updated 07/16/24 @ 09:53 by Rachael Schmidt DO) HSV infection Surgical History (Updated 10/21/17 @ 04:41 by Nik Cee DO) No pertinent past surgical history alcohol intake frequency: 0-2 drinks per day Exam <Tyler Dash DO - Last Filed: 07/16/24 06:56> Narrative Exam Narrative: GENERAL: [29] year old patient appears stated age. Well-developed patient, in mild distress. HEAD: Atraumatic. Normocephalic. EYES: Pupils equal round and reactive. Extraocular motions intact. No scleral icterus. No injection or drainage. ENT: Nose without bleeding, purulent drainage. Throat without erythema, tonsillar hypertrophy or exudate. Airway patent. NECK: Trachea midline. Non tender CARDIOVASCULAR: Regular rate and rhythm without murmurs, gallops, or rubs. RESPIRATORY: Clear to auscultation. Breath sounds equal bilaterally. No wheezes, rales, or rhonchi. GASTROINTESTINAL: Abdomen soft, mild epigastric TTP, nondistended. EXTREMITIES: No edema or joint tenderness. BACK: Nontender without deformity or crepitance. R flank tenderness. NEURO: AOx3. SKIN: No rash or erythema of visible areas Initial Vital Signs Initial Vital Signs: Vital Signs Temperature 98.1 F 07/16/24 05:08 Pulse Rate 93 H 07/16/24 05:08 Respiratory Rate 18 07/16/24 05:08 Blood Pressure 122/68 07/16/24 05:08 Pulse Oximetry 100 07/16/24 05:08 Oxygen Delivery Method Room Air 07/16/24 05:08 <Rachael Schmidt DO - Last Filed: 07/16/24 11:07> Initial Vital Signs Initial Vital Signs: Vital Signs Temperature 98.1 F 07/16/24 05:08 Pulse Rate 93 H 07/16/24 05:08 Respiratory Rate 18 07/16/24 05:08 Blood Pressure 122/68 07/16/24 05:08 Pulse Oximetry 100 07/16/24 05:08 Oxygen Delivery Method Room Air 07/16/24 05:08 Course <Tyler Dash, DO - Last Filed: 07/16/24 06:56> Orders Ordered: ED Orders 07/16/24 05:00 Urine Culture Stat Urine Drug Screen, Rapid Stat Urine Microscopic Stat 07/16/24 05:12 Complete Blood Count AUTO DIFF Stat Comprehensive Metabolic Panel Stat Lipase Stat 07/16/24 05:31 CT abdomen pelvis w con Stat 07/16/24 08:09 US abdomen limited Stat Sodium Chloride (Normal Saline 0.9%) 1,000 mls @ 100 mls/hr IV CONT TERRI Last Admin: 07/16/24 10:32 Dose: 100 mls/hr Documented By: Ondansetron HCl (Ondansetron 4 Mg/2 Ml Inj) 4 mg IV NOW PRN PRN Reason: Nausea And Vomiting Last Admin: 07/16/24 06:03 Dose: 4 mg Documented By: AB Ondansetron HCl (Ondansetron 4 Mg Odt) 4 mg PO NOW PRN PRN Reason: Nausea And Vomiting Discontinued Medications Lactated Ringer's (Lactated Ringers) 1,000 mls @ 1,000 mls/hr IV BOLUS ONE Stop: 07/16/24 06:30 Last Infusion: 07/16/24 08:00 Dose: Infused Documented By: Admin: 07/16/24 06:03 Dose: 1,000 mls/hr Documented By: AB Piperacillin Sod/Tazobactam (Sod 4.5 gm/ Sodium Chloride) 100 mls @ 200 mls/hr IV NOW ONE Stop: 07/16/24 09:50 Last Admin: 07/16/24 10:32 Dose: 200 mls/hr Documented By: Ketorolac Tromethamine (Ketorolac 30 Mg/Ml Vial) 30 mg IV NOW ONE Stop: 07/16/24 05:32 Last Admin: 07/16/24 06:03 Dose: 15 mg Documented By: AB Lorazepam (Lorazepam 2 Mg/Ml Inj) 0.5 mg IV NOW ONE Stop: 07/16/24 10:16 Last Admin: 07/16/24 10:41 Dose: Not Given Documented By: Lorazepam (Lorazepam 1 Mg Tablet) 1 mg PO NOW ONE Stop: 07/16/24 10:24 Last Admin: 07/16/24 10:41 Dose: Not Given Documented By: Vital Signs Vital signs: Vital Signs - 8 hr 07/16/24 05:08 07/16/24 05:30 07/16/24 06:09 Temperature 98.1 F Pulse Rate 93 H 79 70 Respiratory Rate 18 16 16 Blood Pressure 122/68 105/79 112/70 Pulse Oximetry 100 100 100 Oxygen Delivery Method Room Air 07/16/24 06:11 07/16/24 06:11 07/16/24 06:30 Temperature Pulse Rate 80 Respiratory Rate Blood Pressure 112/70 125/80 Pulse Oximetry 100 Oxygen Delivery Method 07/16/24 06:30 07/16/24 07:00 07/16/24 07:00 Temperature Pulse Rate 85 96 H Respiratory Rate 16 Blood Pressure 140/91 H Pulse Oximetry 100 100 Oxygen Delivery Method 07/16/24 07:30 07/16/24 07:30 07/16/24 08:00 Temperature Pulse Rate 89 98 H Respiratory Rate Blood Pressure 124/82 Pulse Oximetry 100 97 Oxygen Delivery Method 07/16/24 08:00 Temperature Pulse Rate Respiratory Rate Blood Pressure 106/62 Pulse Oximetry Oxygen Delivery Method <Rachael Schmidt, DO - Last Filed: 07/16/24 11:07> Orders Ordered: ED Orders 07/16/24 05:00 Urine Culture Stat Urine Drug Screen, Rapid Stat Urine Microscopic Stat 07/16/24 05:12 Complete Blood Count AUTO DIFF Stat Comprehensive Metabolic Panel Stat Lipase Stat 07/16/24 05:31 CT abdomen pelvis w con Stat 07/16/24 08:09 US abdomen limited Stat Sodium Chloride (Normal Saline 0.9%) 1,000 mls @ 100 mls/hr IV CONT TERRI Last Admin: 07/16/24 10:32 Dose: 100 mls/hr Documented By: Ondansetron HCl (Ondansetron 4 Mg/2 Ml Inj) 4 mg IV NOW PRN PRN Reason: Nausea And Vomiting Last Admin: 07/16/24 06:03 Dose: 4 mg Documented By: AB Ondansetron HCl (Ondansetron 4 Mg Odt) 4 mg PO NOW PRN PRN Reason: Nausea And Vomiting Discontinued Medications Lactated Ringer's (Lactated Ringers) 1,000 mls @ 1,000 mls/hr IV BOLUS ONE Stop: 07/16/24 06:30 Last Infusion: 07/16/24 08:00 Dose: Infused Documented By: Admin: 07/16/24 06:03 Dose: 1,000 mls/hr Documented By: AB Piperacillin Sod/Tazobactam (Sod 4.5 gm/ Sodium Chloride) 100 mls @ 200 mls/hr IV NOW ONE Stop: 07/16/24 09:50 Last Admin: 07/16/24 10:32 Dose: 200 mls/hr Documented By: Ketorolac Tromethamine (Ketorolac 30 Mg/Ml Vial) 30 mg IV NOW ONE Stop: 07/16/24 05:32 Last Admin: 07/16/24 06:03 Dose: 15 mg Documented By: AB Lorazepam (Lorazepam 2 Mg/Ml Inj) 0.5 mg IV NOW ONE Stop: 07/16/24 10:16 Last Admin: 07/16/24 10:41 Dose: Not Given Documented By: Lorazepam (Lorazepam 1 Mg Tablet) 1 mg PO NOW ONE Stop: 07/16/24 10:24 Last Admin: 07/16/24 10:41 Dose: Not Given Documented By: Vital Signs Vital signs: Vital Signs - 8 hr 07/16/24 05:08 07/16/24 05:30 07/16/24 06:09 Temperature 98.1 F Pulse Rate 93 H 79 70 Respiratory Rate 18 16 16 Blood Pressure 122/68 105/79 112/70 Pulse Oximetry 100 100 100 Oxygen Delivery Method Room Air 07/16/24 06:11 07/16/24 06:11 07/16/24 06:30 Temperature Pulse Rate 80 Respiratory Rate Blood Pressure 112/70 125/80 Pulse Oximetry 100 Oxygen Delivery Method 07/16/24 06:30 07/16/24 07:00 07/16/24 07:00 Temperature Pulse Rate 85 96 H Respiratory Rate 16 Blood Pressure 140/91 H Pulse Oximetry 100 100 Oxygen Delivery Method 07/16/24 07:30 07/16/24 07:30 07/16/24 08:00 Temperature Pulse Rate 89 98 H Respiratory Rate Blood Pressure 124/82 Pulse Oximetry 100 97 Oxygen Delivery Method 07/16/24 08:00 Temperature Pulse Rate Respiratory Rate Blood Pressure 106/62 Pulse Oximetry Oxygen Delivery Method MDM - Abdominal Pain <Tyler Dash, DO - Last Filed: 07/16/24 06:56> Lab Data 07/16/24 05:12 07/16/24 05:12 Labs: Lab Results 07/16/24 07/16/24 Range/Units 05:00 05:12 WBC 8.7 (4.5-11.0) X10^3/uL RBC 4.00 (4.0-5.2) X10^6/uL Hgb 10.3 L (12.0-16.0) g/dL Hct 31.4 L (36-46) % MCV 78.7 L (80-100) fL MCH 25.7 L (26-34) PG MCHC 32.7 (30-36) % RDW 16.4 H (11.6-14.8) % Plt Count 399 (150-400) X10^3/uL Neut % (Auto) 59.9 (50-75) % Lymph % (Auto) 29.1 (25-40) % [place] % (Auto) 9.3 (3-14) % Eos % (Auto) 1.1 L (2-4) % Baso % (Auto) 0.6 (0-2) % Neut # (Auto) 5200 (7827-8125) /uL Lymph # (Auto) 2500 (6427-6229) /uL [place] # (Auto) 800 (0-900) /uL Eos # (Auto) 100 (0-450) /uL Baso # (Auto) 100 (0-100) /uL Sodium 138 (137-145) mmol/L Potassium 3.9 (3.4-5.1) mmol/L Chloride 103 (98-107) mmol/L Carbon Dioxide 26 (22-32) mmol/L BUN 16 (7-17) mg/dL Creatinine 0.78 (0.52-1.04) mg/dL Estimated GFR > 60 (>60) mL/min BUN/Creatinine Ratio 20.5 (6-22) Glucose 113 H (70-99) mg/dL Calcium 9.1 (8.4-10.2) mg/dL Total Bilirubin 0.3 (0.2-1.3) mg/dL AST 27 (14-36) IU/L ALT 17 (<35) IU/L Alkaline Phosphatase 86 (38-126) U/L Total Protein 7.7 (6.3-8.2) g/dL Albumin 4.4 (3.5-5.0) g/dL Globulin 3.3 (1.7-4.1) g/dL Albumin/Globulin Ratio 1.3 (1.0-2.8) Lipase 96 (23-300) U/L Urine RBC 1-5/hpf (0-5/HPF) Urine WBC 10-30/hpf H (0-5/HPF) Ur Squamous Epith Cells None seen (0-5/HPF) Urine Bacteria Many (>30) H (None) Ur Culture Indicated? Specimen cultured Vol Urine Centrifuged 10ml (spun) U Opiates 300ng/mL cut Negative (Negative) Ur Oxycodone Screen Negative (Negative) Urine Methadone Screen Negative (Negative) Ur Barbiturates Screen Negative (Negative) U Tricyclic Antidepress Negative (Negative) Ur Phencyclidine Scrn Negative (Negative) Ur Amphetamines Screen Positive H (Negative) U Methamphetamines Scrn Positive H (Negative) Ur MDMA Scrn (Ecstasy) Negative (Negative) U Benzodiazepines Scrn Negative (Negative) Urine Cocaine Screen Negative (Negative) U Marijuana (THC) Screen Negative (Negative) Urine pH Normal (Normal) Urine Specific [place] Normal (Normal) Ur Creatinine Normal (Normal) Point of care testing: Point of Care Testing Test Results Negative Urine Dip Bedside Urine Glucose Negative Bedside Urine Bilirubin - Negative Bedside Urine Ketone - Negative Urine Specific [place] 1.020 Bedside Urine Occult Blood - Negative Bedside Urine pH 6.0 Bedside Urine Protein - Negative Bedside Urine Urobilinogen - Negative Bedside Urine Nitrite + Positive Bedside Urine Leukocytes +++ 500 Esterase <Rachael Schmidt, DO - Last Filed: 07/16/24 11:07> Lab Data Labs: Lab Results 07/16/24 07/16/24 Range/Units 05:00 05:12 WBC 8.7 (4.5-11.0) X10^3/uL RBC 4.00 (4.0-5.2) X10^6/uL Hgb 10.3 L (12.0-16.0) g/dL Hct 31.4 L (36-46) % MCV 78.7 L (80-100) fL MCH 25.7 L (26-34) PG MCHC 32.7 (30-36) % RDW 16.4 H (11.6-14.8) % Plt Count 399 (150-400) X10^3/uL Neut % (Auto) 59.9 (50-75) % Lymph % (Auto) 29.1 (25-40) % [place] % (Auto) 9.3 (3-14) % Eos % (Auto) 1.1 L (2-4) % Baso % (Auto) 0.6 (0-2) % Neut # (Auto) 5200 (6391-0092) /uL Lymph # (Auto) 2500 (9927-5149) /uL [place] # (Auto) 800 (0-900) /uL Eos # (Auto) 100 (0-450) /uL Baso # (Auto) 100 (0-100) /uL Sodium 138 (137-145) mmol/L Potassium 3.9 (3.4-5.1) mmol/L Chloride 103 (98-107) mmol/L Carbon Dioxide 26 (22-32) mmol/L BUN 16 (7-17) mg/dL Creatinine 0.78 (0.52-1.04) mg/dL Estimated GFR > 60 (>60) mL/min BUN/Creatinine Ratio 20.5 (6-22) Glucose 113 H (70-99) mg/dL Calcium 9.1 (8.4-10.2) mg/dL Total Bilirubin 0.3 (0.2-1.3) mg/dL AST 27 (14-36) IU/L ALT 17 (<35) IU/L Alkaline Phosphatase 86 (38-126) U/L Total Protein 7.7 (6.3-8.2) g/dL Albumin 4.4 (3.5-5.0) g/dL Globulin 3.3 (1.7-4.1) g/dL Albumin/Globulin Ratio 1.3 (1.0-2.8) Lipase 96 (23-300) U/L Urine RBC 1-5/hpf (0-5/HPF) Urine WBC 10-30/hpf H (0-5/HPF) Ur Squamous Epith Cells None seen (0-5/HPF) Urine Bacteria Many (>30) H (None) Ur Culture Indicated? Specimen cultured Vol Urine Centrifuged 10ml (spun) U Opiates 300ng/mL cut Negative (Negative) Ur Oxycodone Screen Negative (Negative) Urine Methadone Screen Negative (Negative) Ur Barbiturates Screen Negative (Negative) U Tricyclic Antidepress Negative (Negative) Ur Phencyclidine Scrn Negative (Negative) Ur Amphetamines Screen Positive H (Negative) U Methamphetamines Scrn Positive H (Negative) Ur MDMA Scrn (Ecstasy) Negative (Negative) U Benzodiazepines Scrn Negative (Negative) Urine Cocaine Screen Negative (Negative) U Marijuana (THC) Screen Negative (Negative) Urine pH Normal (Normal) Urine Specific [place] Normal (Normal) Ur Creatinine Normal (Normal) Point of care testing: Point of Care Testing Test Results Negative Urine Dip Bedside Urine Glucose Negative Bedside Urine Bilirubin - Negative Bedside Urine Ketone - Negative Urine Specific [place] 1.020 Bedside Urine Occult Blood - Negative Bedside Urine pH 6.0 Bedside Urine Protein - Negative Bedside Urine Urobilinogen - Negative Bedside Urine Nitrite + Positive Bedside Urine Leukocytes +++ [address] scan - abdomen/pelvis: Radiologist's Impression: PROCEDURE: CT ABDOMEN PELVIS W CON INDICATIONS: abd/back pain TECHNIQUE: After the administration of intravenous contrast, axial sections acquired from the lung bases to the pubic symphysis. Coronal and sagittal reformats were performed. For radiation dose reduction, the following was used: automated exposure control, adjustment of mA and/or kV according to patient size. COMPARISON: None. FINDINGS: Image quality: Sagittal reformats were not provided. Lower Chest: No significant findings. ABDOMEN: Liver: Hepatic steatosis with geographic infiltration near the falciform ligament. Gallbladder: The gallbladder wall is diffusely thickened with pericholecystic fluid. Central calcified gallstone. Biliary ducts: No biliary dilation. Pancreas: No ductal dilation. Spleen: Size is within normal limits. Adrenal Glands: No adrenal nodules. Kidneys and Ureters: No hydronephrosis. No solid mass. No complex renal cystic lesion which requires follow up. Stomach and Bowel: Normal colonic caliber, without significant wall thickening. Normal appendix. Coronal image 49 Peritoneum: No abnormal intraperitoneal fluid. No free air. Ventral Wall: No significant ventral hernia. Abdominal Nodes: No retroperitoneal or mesenteric adenopathy by size criteria. Vessels: Aorta and inferior vena cava are normal in size. PELVIS: Pelvic Organs: Unremarkable. Bladder: No bladder wall thickening, accounting for underdistention. Pelvic Nodes: No enlarged lymph nodes. Miscellaneous: No inguinal hernias are seen. Bones: No aggressive osseous abnormality. IMPRESSION: Distended gallbladder with wall thickening and pericholecystic fluid with cholelithiasis concerning for acute cholecystitis. Dictated by: Rajendra Xiong M.D. on 07/16/2024 at 8:31 US - abdomen: Radiologist's Impression: PROCEDURE: US ABDOMEN LIMITED INDICATIONS: RUQ TECHNIQUE: Real-time scanning was performed of the abdominal and retroperitoneal organs, with image documentation. COMPARISON: [facility], CT, CT ABDOMEN PELVIS W CON, 07/16/2024, 5:47. FINDINGS: Liver: Liver is normal in size and homogeneous in echotexture. Gallbladder: Large 1.7 cm mobile gallstone gallbladder wall is grossly thickened measuring 9 mm. There is surrounding pericholecystic fluid. Negative sonographic Gibson sign per dynamite cartridge crimper. Biliary ducts: Intrahepatic bile ducts are non-dilated. Extrahepatic bile duct caliber measures 5.9 mm. Normal is 6-7 mm or less in diameter, or 10 mm or less post-cholecystectomy. Pancreas: Visualized portions of the pancreas are sonographically normal. Miscellaneous: No free abdominal fluid. IMPRESSION: Acute cholecystitis. Dictated by: Rajendra Xiong M.D. on 07/16/2024 at 8:11 [facility] Narrative Medical decision making narrative: 0730 Dr. Schmidt patient signed out to me from Dr. DASH. Seen evaluated patient myself. Currently sleeping. Blood work has been reviewed overall reassuring no leukocytosis normal bilirubin liver enzymes and lipase. CT is concerning for acute cholecystitis. Ultrasound does confirm acute cholecystitis with wall thickening a large gallstone and pericholecystic fluid. [id number] Dr. Caruso, surgery on-call updated patient's symptoms test results. Reports patient should be admitted NPO IV antibiotics and fluids. sHe was no evidence of sepsis. She was very sleepy. She was that she was methamphetamine more than 12 hours ago sometimes yesterday. She was not had anything to eat since 3:00 a.m.. Discharge Plan Departure Patient Disposition: Admitted as Observation Clinical Impression: Cholecystitis, UTI (urinary tract infection) Admit Date/Time: 07/16/24 10:03 Admit Provider: Madhav Caruso
--- NOTE | 2024-07-16 05:31 | DI.CT.S_ITS ---
PROCEDURE: CT ABDOMEN PELVIS W CON INDICATIONS: abd/back pain TECHNIQUE: After the administration of intravenous contrast, axial sections acquired from the lung bases to the pubic symphysis. Coronal and sagittal reformats were performed. For radiation dose reduction, the following was used: automated exposure control, adjustment of mA and/or kV according to patient size. COMPARISON: None. FINDINGS: Image quality: Sagittal reformats were not provided. Lower Chest: No significant findings. ABDOMEN: Liver: Hepatic steatosis with geographic infiltration near the falciform ligament. Gallbladder: The gallbladder wall is diffusely thickened with pericholecystic fluid. Central calcified gallstone. Biliary ducts: No biliary dilation. Pancreas: No ductal dilation. Spleen: Size is within normal limits. Adrenal Glands: No adrenal nodules. Kidneys and Ureters: No hydronephrosis. No solid mass. No complex renal cystic lesion which requires follow up. Stomach and Bowel: Normal colonic caliber, without significant wall thickening. Normal appendix. Coronal image 49 Peritoneum: No abnormal intraperitoneal fluid. No free air. Ventral Wall: No significant ventral hernia. Abdominal Nodes: No retroperitoneal or mesenteric adenopathy by size criteria. Vessels: Aorta and inferior vena cava are normal in size. PELVIS: Pelvic Organs: Unremarkable. Bladder: No bladder wall thickening, accounting for underdistention. Pelvic Nodes: No enlarged lymph nodes. Miscellaneous: No inguinal hernias are seen. Bones: No aggressive osseous abnormality. IMPRESSION: Distended gallbladder with wall thickening and pericholecystic fluid with cholelithiasis concerning for acute cholecystitis. Dictated by: Rajendra Xiong M.D. on 07/16/2024 at 8:31 Approved by: Rajendra Xiong M.D. on 07/16/2024 at 8:36
[2024-07-16 05:32] LABS: Add Manual Diff / Slide Review NO; Alanine Aminotransferase 17 IU/L (<35); Albumin 4.4 g/dL (3.5-5.0); Albumin Globulin Ratio 1.3 (1.0-2.8); Alkaline Phosphatase 86 U/L (38-126); Aspartate Aminotransferase 27 IU/L (14-36); BUN Creatinine Ratio 20.5 (6-22); Basophils Absolute Auto 100 /uL (0-100); Basophils Percent Auto 0.6 % (0-2); Bilirubin Total 0.3 mg/dL (0.2-1.3); Blood Urea Nitrogen 16 mg/dL (7-17); Calcium 9.1 mg/dL (8.4-10.2); Carbon Dioxide 26 mmol/L (22-32); Chloride 103 mmol/L (98-107); Eosinophils Absolute Auto 100 /uL (0-450); Eosinophils Percent Auto 1.1 % (2-4); Estimated Glomerular Filt Rate > 60 mL/min (>60); Globulin 3.3 g/dL (1.7-4.1); Glucose 113 mg/dL (70-99); HEMOLYSIS < 15 (0-50); Hematocrit 31.4 % (36-46); Hemoglobin 10.3 g/dL (12.0-16.0); Lipase 96 U/L (23-300); Lymphocytes Absolute Auto 2500 /uL (1100-4500); Lymphocytes Percent Auto 29.1 % (25-40); Mean Corpuscular HGB Conc 32.7 % (30-36); Mean Corpuscular Hemoglobin 25.7 PG (26-34); Mean Corpuscular Volume 78.7 fL (80-100); Monocytes Absolute Auto 800 /uL (0-900); Monocytes Percent Auto 9.3 % (3-14); Neutrophils Absolute Auto 5200 /uL (1500-7000); Neutrophils Percent Auto 59.9 % (50-75); Platelet Count 399 X10^3/uL (150-400); Potassium 3.9 mmol/L (3.4-5.1); Red Cell Distribution Width 16.4 % (11.6-14.8); Sodium 138 mmol/L (137-145); Total Protein 7.7 g/dL (6.3-8.2); White Blood Cell Count 8.7 X10^3/uL (4.5-11.0)
[2024-07-16 05:55] LABS: Bacteria Urine Many (>30); Culture Indicated Urine Specimen Cultured; RBC Urine 1-5/HPF (0-5/HPF); Squamous Epithelial Cell Urine None Seen (0-5/HPF); Urine Volume 10mL (spun); WBC Urine 10-30/HPF (0-5/HPF)
[2024-07-16] MEDS: LACTATED RINGERS 1,000 ML 1000 ML IV (06:03)
[2024-07-16] MEDS: ONDANSETRON 4 MG/2 ML INJ IV ×2 (06:03→16:57)
[2024-07-16] MEDS: KETOROLAC 30 MG/ML VIAL IV (06:03)
--- NOTE | 2024-07-16 08:09 | DI.US.S_ITS ---
PROCEDURE: US ABDOMEN LIMITED INDICATIONS: RUQ TECHNIQUE: Real-time scanning was performed of the abdominal and retroperitoneal organs, with image documentation. COMPARISON: [facility], CT, CT ABDOMEN PELVIS W CON, 07/16/2024, 5:47. FINDINGS: Liver: Liver is normal in size and homogeneous in echotexture. Gallbladder: Large 1.7 cm mobile gallstone gallbladder wall is grossly thickened measuring 9 mm. There is surrounding pericholecystic fluid. Negative sonographic Gibson sign per printed circuit board panels trimmer. Biliary ducts: Intrahepatic bile ducts are non-dilated. Extrahepatic bile duct caliber measures 5.9 mm. Normal is 6-7 mm or less in diameter, or 10 mm or less post-cholecystectomy. Pancreas: Visualized portions of the pancreas are sonographically normal. Miscellaneous: No free abdominal fluid. IMPRESSION: Acute cholecystitis. Dictated by: Rajendra Xiong M.D. on 07/16/2024 at 8:11 Approved by: Rajendra Xiong M.D. on 07/16/2024 at 8:14
[2024-07-16 09:22] LABS: Ur Creatinine Normal (Normal); Ur Specific Gravity Normal (Normal); Urine Methamphetamines Positive (Negative); Urine Tetrahydrocannabinol Negative (Negative); Urine pH Normal (Normal)
[2024-07-16 09:23] LABS: UR Morphine/Opiate cutoff 300 Negative (Negative); Urine Amphetamines Positive (Negative); Urine Barbiturates Negative (Negative); Urine Benzodiazepines Negative (Negative); Urine Cocaine Negative (Negative); Urine MDMA Negative (Negative); Urine Methadone Negative (Negative); Urine Oxycodone Negative (Negative); Urine Phencyclidine Negative (Negative); Urine Tricyclic Antidepressant Negative (Negative)
[2024-07-16] MEDS: SODIUM CHLORIDE 0.9% 1,000 ML 100 ML IV (10:32)
[2024-07-16] MEDS: PIPERACILLIN/TAZO 4.5 GM in SODIUM CHLORIDE 0.9% 100 ML IV (10:32)
--- NOTE | 2024-07-16 11:36 | P.HP_ITS ---
History of Present Illness History of Present Illness Chief complaint: Abdominal Pain Narrative: 29-year-old 2-3 day history of nausea and subsequently developed midepigastric pain. She presented to the ED with that complaint several hours ago and was evaluated epigastric tenderness was noted. White count was normal, LFT were normal. CT abdomen demonstrated potentially thickened gallbladder wall with a mobile stone. Ultrasound confirms thickened gallbladder wall, pericholecystic fluid and gallstones. She is admitted for definitive management of an apparent case of acute cholecystitis. [facility] Medical History (Updated 07/16/24 @ 11:40 by Madhav Caruso MD) HSV infection Surgical History (Updated 10/21/17 @ 04:41 by Nik Cee DO) No pertinent past surgical history Meds Home Medications and Allergies Home Medications Medication Instructions Recorded Confirmed Type No Known Home Medications 07/16/24 07/16/24 History Allergies Allergy/AdvReac Type Severity Reaction Status Date / Time No Known Allergies Allergy Uncoded 03/30/18 17:07 Review of Systems Review of Systems Narrative: Comprehensive review of systems negative to direct questioning. Exam Vital Signs (past 8 hours): - 07/16/24 05:08 07/16/24 05:30 07/16/24 06:09 Temperature 98.1 F Pulse Rate 93 H 79 70 Respiratory Rate 18 16 16 Blood Pressure 122/68 105/79 112/70 Pulse Oximetry 100 100 100 Oxygen Delivery Method Room Air 07/16/24 06:11 07/16/24 06:11 07/16/24 06:30 Temperature Pulse Rate 80 Respiratory Rate Blood Pressure 112/70 125/80 Pulse Oximetry 100 Oxygen Delivery Method 07/16/24 06:30 07/16/24 07:00 07/16/24 07:00 Temperature Pulse Rate 85 96 H Respiratory Rate 16 Blood Pressure 140/91 H Pulse Oximetry 100 100 Oxygen Delivery Method 07/16/24 07:30 07/16/24 07:30 07/16/24 08:00 Temperature Pulse Rate 89 98 H Respiratory Rate Blood Pressure 124/82 Pulse Oximetry 100 97 Oxygen Delivery Method 07/16/24 08:00 07/16/24 10:32 07/16/24 10:32 Temperature Pulse Rate 89 Respiratory Rate Blood Pressure 106/62 103/64 Pulse Oximetry 99 Oxygen Delivery Method Oxygen Delivery Method Room Air Objective Labs 07/16/24 05:12 07/16/24 05:12 Labs: Laboratory Results - last 24 hr 07/16/24 07/16/24 05:00 05:12 WBC 8.7 RBC 4.00 Hgb 10.3 L Hct 31.4 L MCV 78.7 L MCH 25.7 L MCHC 32.7 RDW 16.4 H Plt Count 399 Neut % (Auto) 59.9 Lymph % (Auto) 29.1 [place] % (Auto) 9.3 Eos % (Auto) 1.1 L Baso % (Auto) 0.6 Neut # (Auto) 5200 Lymph # (Auto) 2500 [place] # (Auto) 800 Eos # (Auto) 100 Baso # (Auto) 100 Sodium 138 Potassium 3.9 Chloride 103 Carbon Dioxide 26 BUN 16 Creatinine 0.78 Estimated GFR > 60 BUN/Creatinine Ratio 20.5 Glucose 113 H Calcium 9.1 Total Bilirubin 0.3 AST 27 ALT 17 Alkaline Phosphatase 86 Total Protein 7.7 Albumin 4.4 Globulin 3.3 Albumin/Globulin Ratio 1.3 Lipase 96 Urine RBC 1-5/hpf Urine WBC 10-30/hpf H Ur Squamous Epith Cells None seen Urine Bacteria Many (>30) H Ur Culture Indicated? Specimen cultured Vol Urine Centrifuged 10ml (spun) U Opiates 300ng/mL cut Negative Ur Oxycodone Screen Negative Urine Methadone Screen Negative Ur Barbiturates Screen Negative U Tricyclic Antidepress Negative Ur Phencyclidine Scrn Negative Ur Amphetamines Screen Positive H U Methamphetamines Scrn Positive H Ur MDMA Scrn (Ecstasy) Negative U Benzodiazepines Scrn Negative Urine Cocaine Screen Negative U Marijuana (THC) Screen Negative Urine pH Normal Urine Specific [place] Normal Ur Creatinine Normal Assessment & Plan Assessment and plan (1) Acute cholecystitis: Status: Acute (2) UTI (urinary tract infection): Status: Acute Plan I have recommended a laparoscopic attempt at colic. Alternatives, risks and benefits were discussed in detail. Questions were answered. Patient and her significant other voiced understanding, asked appropriate questions and desired to proceed as I have outlined. We will accommodate her when an OR can be made available in the immediate future. Urinary tract infection will be treated in an ongoing fashion with oral antibiotics. Time-Based Coding :: [TOTAL MINUTES] spent with patient and on the chart (including review of chart, obtaining history, exam, reviewing outside data, placing orders, documenting exam and treatment plan, and counseling patient) on [DATE]. Quality VTE Deep Vein Thrombosis/Pulmonary Embolism Present on Admission: No IH PROFEE Survey Chief Document charge(s): Yes
--- NOTE | 2024-07-16 12:01 | PC.NURSE ---
Addendum entered by Viviana Odom R.N. 07/16/24 17:00: Patient returned from PACU this afternoon at approximately 1511. She is lethargic, but awakens and is able to ambulate to bathroom for a large void. Abdomen with x4 lap sites covered with band aids, C/D/I. POSTOP VS per protocol. She is tearful upon awakening and medicated with PRN dilauded and zofran for c/o nausea. Bed alarm, call light in reach, continuous pulse ox, IVF LR at 100 ml/hr. Continuous monitoring. Original Note: Patient arrived from ED at approximately 1105 this a.m. from ED. She reports pain to abdomen minimal. She is A&OX4, VSS, afebrile on RA. IV zosyn completed after transport. Surgeon arrives to bedside to evaluate patient and she is consented for surgery. She asks appropriate questions and is agreeable to plan for gall bladder removal. She expresses anxiety for surgery, and is requesting medication to ease anxiety. Pre op RN aware, as patient is going to preop area currently.
[2024-07-16] MEDS: LACTATED RINGERS 1,000 ML 42 ML IV ×2 (12:39→14:27)
[2024-07-16] MEDS: ALBUTEROL 2.5 MG/3 ML NEB (ADULT) INH (12:40)
[2024-07-16] MEDS: CEFAZOLIN 2 GM/100 ML PREMIX 100 ML IV (13:07)
[2024-07-16] MEDS: BUPIVACAINE 0.5% (PF) 30 ML VIAL INJ (13:59)
--- NOTE | 2024-07-16 14:22 | P.OP_ITS ---
Operative Date/Time/Diagnoses Date of procedure: 07/16/24 Time of procedure: 14:00 Pre-op diagnosis: acute cholecystitis Post-op diagnosis: same Procedure & Clinicians Procedure: laparoscopic cholecystectomy Same procedure as scheduled: Yes Indications: acute cholecystitis Surgeon: Madhav Caruso Click Yes if Unassisted: Yes Anesthesia Type: General Operative Notes Findings: acute cholecystitis Closure Type: primary Specimen(s): other (gall bladder and contents) Estimated Blood Loss (mL): 10 Procedure in detail: After obtaining informed consent properly identifying the patient the patient was transported to the operating room and was placed on the table in the supine position. General endotracheal heel anesthesia was induced and the abdomen was prepped and draped in the usual sterile manner. Time-out protocol was observed. A curvilinear supraumbilical incision of 2 cm length was made at the umbilical verge. This was carried down onto the linea [place]ba with the electrocautery. Traction sutures of 0 Vicryl were placed on either side of midline and appeared anatomy was made under direct vision between the traction sutures. A 12 mm Bassett cannula was installed and was secured by inflating the balloon at the cannulas tip. Pneumoperitoneum was instilled and a 10 mm 30 degree angled laparoscope was passed. Under direct laparoscopic vision 3 additional 5 mm ports were 2 fingerbreadths below the right costal margin, 1 each in the following positions: Subxiphoid, midclavicular line and anterior axillary line. The gallbladder fundus was retracted anteriorly and cephalad and the infundibulum was retracted laterally. A combination of sharp and blunt d issection in the triangle of Calot with the L hook cautery and [place] dissector demonstrated the cystic duct and artery. Critical view was obtained and these structures were triply clipped and transected between the clips near the gallbladder. The remainder of the procedure consisted of sharp dissection with the L hook cautery and a plane between the gallbladder wall in the gallbladder fossa which proceeded from the infundibulum towards the fundus. Final attachments were taken and the liver edge was allowed to retract. A 5 mm scope was passed through the upper midline port and the 10 mm 30 degree angled scope was withdrawn from the Bassett. An Endo-Catch specimen extractor was passed through the Bassett and the specimen was bagged under direct laparoscopic vision. The Bassett balloon was deflated and the Bassett Endo-Catch and specimen were withdrawn from the supraumbilical port site as a unit. The specimen was passed from the field and the Bassett and 10 mm 30 degree angled scope were restored to their original positions. The subhepatic space was copiously irrigated and all irrigant was evacuated. Hemostasis was perfect. All laparoscopic equipment was done under direct laparoscopic vision. Pneumoperitoneum was was evacuated and ports were withdrawn. The supraumbilical fascial defect was closed with a running 0 Prolene stitch. Skin wounds were closed with inverted simple interrupted deep dermal 3-0 Vicryl sutures and Dermabond. Dressings were applied. The patient tolerated the procedure well and was transported to the recovery room extubated and awake. Complications: none Post-operative Condition: stable Disposition: PACU Plan for aftercare: Discharge to home when tolerant of regular diet and pain is adequately controlled.
[2024-07-16] MEDS: LACTATED RINGERS 1,000 ML 125 ML IV (15:20)
[2024-07-16] MEDS: HYDROMORPHONE 0.5 MG INJ IV (16:55)
[2024-07-16] MEDS: HYDROCODONE/ACET 5/325 TABLET 1 TAB PO (21:13)
[2024-07-17] MEDS: HYDROCODONE/ACET 5/325 TABLET 2 TAB PO (02:06)
[2024-07-17 07:57] VITALS: BP 103/57; PULSE 98; RESP 15; TEMP 37.1; O2SAT 98
--- NOTE | 2024-07-17 08:09 | P.PN_ITS ---
Subjective Subjective Interval history: Feels well. Much better than preop. Pain control adequate. Tolerant of regular diet. Exam Vital Signs (past 8 hours): - 07/17/24 07:57 Temperature 98.7 F Pulse Rate 98 H Respiratory Rate 15 Blood Pressure 103/57 L Pulse Oximetry 98 Oxygen Flow Rate 0 Oxygen Delivery Method Room Air Oxygen Flow Rate 0 Narrative Exam Narrative: Lungs are clear to auscultation. Heart has regular rate and rhythm with no murmur or gallop. Abdomen is soft with appropriate incisional tenderness. Dressings are dry. Bowel sounds are present. Objective Labs 07/16/24 05:12 07/16/24 05:12 Labs: Laboratory Results - last 24 hr 07/16/24 05:00 U Opiates 300ng/mL cut Negative Ur Oxycodone Screen Negative Urine Methadone Screen Negative Ur Barbiturates Screen Negative U Tricyclic Antidepress Negative Ur Phencyclidine Scrn Negative Ur Amphetamines Screen Positive H U Methamphetamines Scrn Positive H Ur MDMA Scrn (Ecstasy) Negative U Benzodiazepines Scrn Negative Urine Cocaine Screen Negative U Marijuana (THC) Screen Negative Urine pH Normal Urine Specific [place] Normal Ur Creatinine Normal PFSH Medical History (Updated 07/16/24 @ 11:40 by Madhav Caruso MD) HSV infection Surgical History (Updated 10/21/17 @ 04:41 by Nik Cee DO) No pertinent past surgical history Social History household members: significant other Smoking Status: Current every day smoker alcohol intake: former Assessment & Plan Assessment and plan (1) Acute cholecystitis: Status: Acute Plan Doing well postop day 1 from laparoscopic cholecystectomy for acute cholecystitis. Plan: Discharge to home with analgesics. Follow up with me 1 week. Time-Based Coding :: [TOTAL MINUTES] spent with patient and on the chart (including review of chart, obtaining history, exam, reviewing outside data, placing orders, documenting exam and treatment plan, and counseling patient) on [DATE]. 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
[2024-07-17] MEDS: HYDROCODONE/ACET 5/325 TABLET 1 TAB PO (09:17)
--- NOTE | 2024-07-17 12:18 | PC.NURSE ---
Patient is A&OX4, restful. She awakens easily but sleepy. She is cleared by MD for discharge home today. Incisions to abdomen are c/d/i. She reports pain is well controlled with one tablet of hydrocodone this a.m. She is able to tolerate eating breakfast w/o n/v. She calls for a ride home this a.m. which arrived at approximately at noon. She verbalizes understanding of surgical site care, s/sx of infection, and to look for dark urine, yellowing color of eyes. She acknowledges activity limitations, medications as well as follow up appointent request in 1 week with MD Michael. She is escorted via w/ to private vehicle for discharge home with her sister at 1210 this afternoon.
== END 2024-07-17 12:10 | disposition home or self-care (01) ==
LOC: ED 09:53 → AC 10:04
PROVIDERS: Family Medicine; Admitting Provider Surgery; Emergency Provider Emergency Medicine; Referring Provider Emergency Medicine; Visit Provider Surgery
PROC: 0FT44ZZ Resection of Gallbladder, Percutaneous Endoscopic Approach (ICD-10-PCS; CPT 47562; principal; 2024-07-16 12:45)
DX: K81.0 Acute cholecystitis (principal); N39.0 Urinary tract infection, site not specified; F17.210 Nicotine dependence, cigarettes, uncomplicated
CPT/HCPCS: 47562; 36415; 74177; 76705; 80053; 80305; 81003; 81015; 81025; 83690; 85025; 87077; 87086; 87186; 96361; 96365; 96375; 96376; 99284; G0378; J0330; J0690; J1100; J1171; J1885; J2405; J2543; J2704; J3010; J3490; J7613; Q9967